=== PATIENT | female | born 1995 | race Caucasian/White ===

== ENCOUNTER 2018-09-11 22:38 | Emergency (ER) | payer MEDICAID ==
[~2018-09-11] VITALS: Ht 162.6 cm; Wt 72.0 kg
[2018-09-11 23:05] VITALS: BP 101/71
== END 2018-09-12 01:04 | disposition left against medical advice (07) ==
LOC: ER 22:38
DX: R10.30 Lower abdominal pain, unspecified (principal); Z53.21 Procedure and treatment not carried out due to patient leaving prior to being seen by health care provider

== ENCOUNTER 2020-09-10 19:30 | Observation (INO) | payer MEDICAID ==
[~2020-09-10] VITALS: Ht 162.6 cm; Wt 75.7 kg
[2020-09-10] MEDS ORDERED: FOLI0.4T6 PO (21:58)
[2020-09-10] MEDS ORDERED: CALC-1139 PO (21:58)
[2020-09-10] MEDS ORDERED: FERR-71 PO (21:58)
[2020-09-10] MEDS ORDERED: PNV1TABL50 PO (21:58)
== END 2020-09-10 22:24 | disposition home or self-care (01) ==
LOC: 8 EST LDRP 19:30
PROVIDERS: ADMIT Specialist; ATTEND Specialist
DX: O42.913 Preterm premature rupture of membranes, unspecified as to length of time between rupture and onset of labor, third trimester (principal); O36.8130 Decreased fetal movements, third trimester, not applicable or unspecified; Z3A.29 29 weeks gestation of pregnancy
CPT/HCPCS: 59025; 76815; 76818; G0378; 99281

== ENCOUNTER 2020-11-26 17:53 | Observation (INO) | payer MEDICAID ==
[~2020-11-26] VITALS: Ht 162.6 cm; Wt 84.4 kg
[~2020-11-26 17:53] MED LIST: CALC-1139 PO; FERR-71 PO; FOLI0.4T6 PO; PNV1TABL50 PO
== END 2020-11-26 20:20 | disposition home or self-care (01) ==
LOC: 8 EST LDRP 17:53
PROVIDERS: ADMIT Specialist; ATTEND Specialist
DX: O26.893 Other specified pregnancy related conditions, third trimester (principal); R10.30 Lower abdominal pain, unspecified; O99.891 Other specified diseases and conditions complicating pregnancy; M54.5 Low back pain; Z3A.40 40 weeks gestation of pregnancy
CPT/HCPCS: 59025; G0378; 99281